=== PATIENT | male | born 1945 | race Caucasian/White ===

== ENCOUNTER → 2016-09-18 | Outpatient (CLI) | payer MEDICARE, OTHER | END | disposition disaster alternative care site (69) | LOC: GAMB 08:06 | DX: R06.9 Unspecified abnormalities of breathing (principal); R06.02 Shortness of breath; R06.2 Wheezing; Z79.82 Long term (current) use of aspirin; Z79.899 Other long term (current) drug therapy; Z88.6 Allergy status to analgesic agent; Z88.1 Allergy status to other antibiotic agents; Z88.8 Allergy status to other drugs, medicaments and biological substances | CPT/HCPCS: A0422; A0425; A0427 ==

== ENCOUNTER → 2016-09-22 | Emergency (ER) | payer MEDICARE, OTHER | END | disposition disaster alternative care site (69) | LOC: GAMB 22:16 | DX: J96.90 Respiratory failure, unspecified, unspecified whether with hypoxia or hypercapnia (principal); E11.9 Type 2 diabetes mellitus without complications; Z79.82 Long term (current) use of aspirin; Z79.899 Other long term (current) drug therapy; Z79.890 Hormone replacement therapy; Z88.8 Allergy status to other drugs, medicaments and biological substances; Z88.1 Allergy status to other antibiotic agents; Z88.6 Allergy status to analgesic agent ==

== ENCOUNTER 2016-09-26 21:55 | Emergency (ER) | payer MEDICARE, OTHER ==
--- NOTE | ~2016-09-26 | ER ---
PATIENT'S NAME: JOHNATHAN BLANTON [facility] AGE: 71 Y [address] ROOM: [place] [address] LOCATION: ED ADMIT DATE: 09/26/2016 ER/Outpatient Report DISCHARGE DATE: 09/26/2016 FAMILY PHYSICIAN: PHYSICIAN, NO ATTENDING PHYSICIAN: Randy Freire TIME SEEN: 2205 hours. HISTORY OF PRESENT ILLNESS: The patient is a 71-year-old male who tonight while at home noticed a rash on his stomach. The patient then became concerned that he possibly was having an allergic reaction and called EMS. EMS reported when they arrived, there was no evidence of any rash, he did not appear to have any swelling or trouble swallowing. The patient's concern was that in the past he had a reaction to a contrast dye and evidently had an anaphylactic reaction. The patient has recently been in the hospital at [facility] for a possible lung infection and was discharged on 2 antibiotics to include Augmentin and Bactrim. ALLERGIES: HE HAS AN ALLERGY TO CONTRAST DYE. CURRENT MEDICATIONS: Copied list was reviewed. MEDICAL HISTORY: Insulin-dependent diabetes, history of congestive heart failure, exposure to [place], hypertension, hyperlipidemia, and COPD. [facility] SURGERIES: He has had cholecystectomy. SOCIAL HISTORY: Nonsmoker. Denies any alcohol use. REVIEW OF SYSTEMS: GENERAL: Today, he has had no fever or chills today. HEAD AND EENT: No complaints of a headache. He has swelling of his tongue. RESPIRATORY: Slight cough, but no wheezing. No significant change in his breathing. CARDIOVASCULAR: No chest pain. No palpitations. Has some swelling in his feet. PATIENT'S NAME: JOHNATHAN BLANTON [facility] AGE: 71 Y [address] ROOM: [place] [address] LOCATION: ED ADMIT DATE: 09/26/2016 ER/Outpatient Report DISCHARGE DATE: 09/26/2016 FAMILY PHYSICIAN: PHYSICIAN, YANIRA ATTENDING PHYSICIAN: Randy Freire GASTROINTESTINAL: No vomiting, no diarrhea. SKIN: Reported a rash at home, which has since disappeared. PHYSICAL EXAMINATION: VITAL SIGNS: His blood pressure was 189/76, his temperature was 98.5, his O2 saturation is 94%, and his pulse was 64. GENERAL: The patient walked into the exam room. HEAD AND EENT: Both TMs appeared intact. His tongue and throat: No obvious swelling. NECK: There is no adenopathy. LUNGS: Diminished at the bases, but no wheezing, no rhonchi noted. HEART: Tones distant but appeared regular. ABDOMEN: Somewhat obese, but nontender. SKIN: There is no evidence of presence of any rash or hives. ASSESSMENT: 1. Possible allergic reaction resulting in anxiety. 2. Chronic obstructive pulmonary disease. 3. History of heart failure. 4. Hypertension. 5. Excessive weight. 6. Insulin-dependent diabetes. 7. Hypothyroidism. PLAN: The patient was given reassurance. Advised if he develops a presence of the rash again or cough or any concerns, [facility] or return to the Emergency [facility]. ELVIN DAWSON FOR MD BRITT DUARTE/joseph /[id number] d: 09/27/16 0203 t: 10/02/16 0952, OUTPATIENT REPORT
== END 2016-09-26 22:28 | disposition disaster alternative care site (69) ==
LOC: GMED 21:55
DX: F41.9 Anxiety disorder, unspecified (principal); E11.9 Type 2 diabetes mellitus without complications; I50.9 Heart failure, unspecified; J44.9 Chronic obstructive pulmonary disease, unspecified; E66.9 Obesity, unspecified; E03.9 Hypothyroidism, unspecified; I11.0 Hypertensive heart disease with heart failure; Z79.4 Long term (current) use of insulin; Z91.041 Radiographic dye allergy status; Z79.899 Other long term (current) drug therapy; Z90.49 Acquired absence of other specified parts of digestive tract; Z79.2 Long term (current) use of antibiotics

== ENCOUNTER → 2016-09-26 | Emergency (ER) | payer MEDICARE, OTHER | END | disposition disaster alternative care site (69) | LOC: GAMB 21:36 | DX: F41.9 Anxiety disorder, unspecified (principal); Z79.82 Long term (current) use of aspirin; Z79.899 Other long term (current) drug therapy; Z88.1 Allergy status to other antibiotic agents; Z88.6 Allergy status to analgesic agent; Z88.8 Allergy status to other drugs, medicaments and biological substances ==